=== PATIENT | male | born 1970 | race Caucasian/White ===

== ENCOUNTER 2023-02-20 10:13 | Emergency (ER) | payer OTHER ==
[2023-02-20] MEDS ORDERED: Ibuprofen 800 MG TAB ONE (11:15)
== END 2023-02-20 11:19 | disposition home or self-care (01) ==
LOC: MADERS 10:13
DX: S39.012A Strain of muscle, fascia and tendon of lower back, initial encounter (principal); E78.00 Pure hypercholesterolemia, unspecified; I10 Essential (primary) hypertension; F17.210 Nicotine dependence, cigarettes, uncomplicated; Z79.899 Other long term (current) drug therapy; V89.2XXA Person injured in unspecified motor-vehicle accident, traffic, initial encounter
CPT/HCPCS: 74150